=== PATIENT | male | born 1980 | race Caucasian/White ===

== ENCOUNTER → 2020-06-30 17:33 | Outpatient (CLI) | payer BC, SELFPAY ==
[2020-06-30 18:35] LABS: Basophils # 0.1 K/mm3 (0-0.2); Basophils % 0.6 % (0.1-2.0); Eosinophils # 0.3 K/mm3 (0.0-0.4); Eosinophils % 2.6 % (0.1-12.0); Hematocrit 45.8 % (42.0-52.0); Lymphocytes # 3.1 K/mm3 (0.7-4.5); Lymphocytes % 31.5 % (10-50); Mean Corpuscular HGB Conc 32.7 g/dL (31.8-35.4); Mean Corpuscular Hemoglobin 30.7 pg (27.0-31.2); Mean Platelet Volume 9.7 fl (7.4-10.4); Monocytes # 0.8 K/mm3 (0.1-1.0); Monocytes % 8.3 % (1.7-9.3); Neutrophils # 5.5 K/mm3 (1.8-7.8); Neutrophils % 56.9 % (37.0-80.0); Platelet Count 285 K/mm3 (142-424); Red Blood Count 4.88 M/mm3 (4.60-6.20); Red Cell Distribution Width 12.7 % (11.5-17.5); White Blood Count 9.7 K/mm3 (4.8-10.8)
[2020-06-30 18:39] LABS: Alanine Aminotransferase 20 U/L (12-78); Albumin Level 4.6 g/dl (3.5-5.0); Albumin/Globulin Ratio 1.5 (1.1-1.8); Alkaline Phosphatase 83 U/L (38-126); Anion Gap 14.5 mEq/L (5-15); Aspartate Amino Transferase 27 U/L (17-59); Bilirubin,Total 0.5 mg/dl (0.2-1.3); Blood Urea Nitrogen 11 mg/dl (9-20); Calcium 10.3 mg/dl (8.4-10.2); Carbon Dioxide 26 mmol/L (22.0-30.0); Chloride 105 mmol/L (98-107); Cholesterol 156 mg/dl (140-200); Estimated Glomerular Filt Rate 93 ml/min (>60); GFR (African American) 113 ML/MIN (>60); Globulin 3.1 g/dL (1.3-3.2); Glucose 104 mg/dl (74-100); HDL Cholesterol 39 mg/dl (40-60); Potassium 4.5 mmoL/L (3.5-5.1); Sodium 141 mmol/L (136-145); Total Protein,Serum 7.7 g/dl (6.3-8.2); Triglycerides 124 mg/dl (30-150); VLDL Cholesterol 25 mg/dL (0-40)
[2020-06-30 18:58] LABS: T4 (Thyroxine) 9.2 ug/dl (5.53-11.0)
[2020-06-30 19:11] LABS: Thyroid Stimulating Hormone 0.54 uIU/mL (0.465-4.68)
== END ==
PROVIDERS: Visit Provider Nurse Practitioner Family
DX: R53.83 Other fatigue (principal)
CPT/HCPCS: 80053; 80061; 84436; 84443; 85025

== ENCOUNTER → 2022-02-14 11:42 | Outpatient (CLI) | payer BC, SELFPAY ==
--- NOTE | 2022-02-14 11:46 | XR_ITS ---
FINAL REPORT CLINICAL HISTORY: pain low back, hx of fx years ago around t12 FINDINGS: THORACIC SPINE Three views were obtained. There is no acute fracture. There is a moderate chronic T12 compression fracture. There is mild leftward curvature. The disc spaces are preserved. There is no soft tissue abnormality. IMPRESSION: No acute bony abnormality. Reviewed, Interpreted and Dictated by Sukhwinder Lucas III, MD Transcribed by Shital Cho Authenticated and [facility]
--- NOTE | 2022-02-14 11:46 | XR_ITS ---
FINAL REPORT CLINICAL HISTORY: pain, low back, hx of fx years ago around t12 FINDINGS: LUMBAR SPINE Three views were obtained. There is no acute fracture. There is a moderate chronic T12 compression fracture. There is no malalignment. The disc spaces are preserved. There is no soft tissue abnormality. IMPRESSION: No acute bony abnormality. Reviewed, Interpreted and Dictated by Sukhwinder Lucas III, MD Transcribed by Shital Cho Authenticated and . [facility]
== END ==
PROVIDERS: PCP Family Medicine; Visit Provider Family Medicine
DX: M54.6 Pain in thoracic spine (principal); M54.9 Dorsalgia, unspecified; M54.50 Low back pain, unspecified; G89.29 Other chronic pain
CPT/HCPCS: 72070; 72100

== ENCOUNTER → 2022-03-01 09:54 | Outpatient (POV) | payer BC, SELFPAY ==
[2022-03-01 10:38] VITALS: BP 123/99; PULSE 88; RESP 18; TEMP 37.1; O2SAT 99; BMI 23.2
--- NOTE | 2022-03-01 10:59 | EXP.PAIN.OV ---
HPI Data of Consult Patient: new to practice Consult date: 03/01/22 Requesting Physician: Hillary Mccormack APRN Primary Care Provider: Chirag Pereyra MD Consult Narrative Reason for consult: Mid/low back pain, bilateral leg pain History of present illness: Mr. Lord is a 41 year old male who presents today as a new patient. He is a referral from Dr. Stanton Pereyra's office. Today the patient rates his pain a 8 out of 10. He states the pain is primarily in his mid/low back that radiates into his bilateral lower extremities however the right side primarily. Patient states that back in 2006 he had a back fracture and has had chronic back pain and related symptoms due to this injury. Patient states that they did want to do surgery at that time however he was against it. Patient has seen physical therapy and a chiropractor in the past however stated it did not provide significant improvement of his symptoms. His last visits with either of these were back in 2018/2018. He also received injections in [place] that provided significant improvement of his symptoms lasting for roughly 2 months. Patient states he does use ibuprofen [id number] however he frequently states he has to take a large dose in order to get any relief. He does use topical such as icy hot with minimal improvement of his symptoms. He is also tried heat and ice however this has not helped. Patient states this is a aching, throbbing sensation that is worse with increased activity and also has burning sensations into his lower extremities. Patient states nothing seems to help his pain. Patient has recently been given [place] [address] Pereyra's office however he states he saw no improvement of his symptoms with this medication. His Jaems is [id number] with a morphine equivalent of 5. It has been reviewed and appropriate. CC: Hillary Mccormack APRN [facility], [facility] Medical History (Updated 03/01/22 @ 11:05 by Hillary Mccormack APRN) Chronic pain Social History (Updated 02/08/22 @ 10:16 by Chau Burnette LPN) Smoking Status: Former smoker pack-years: 23 how long ago did patient quit smokin stopped smoking -pt is currently dipping tobacco. second hand exposure: No alcohol intake: never substance use type: denies use current occupational status: employed Travel in the last 8 weeks: None household members: family housing: house Review of Systems Review of Systems Review of systems:: pertinent systems reviewed and negative unless documented below Review of systems (narrative): Review of Systems: General: No recent weight changes, no fever, no sleep disturbances Respiratory: No cough, no shortness of air, no recurring pulmonary infections Cardiovascular/peripheral vascular: No chest pain, no palpitations, no edema, no shortness of breath Gastrointestinal: No new onset incontinence, normal bowel movements reported Genitourinary: No new onset incontinence Musculoskeletal: Mid/low back pain, bilateral leg pain Psychiatric: [Normal mood/affect] Neurological: [Denies weakness in extremities], [denies balance issues] Meds Home Medications and Allergies Home Medications Medication Instructions Recorded Confirmed Type hydrocodone 5 mg-acetaminophen 325 1 tab PO DAILY PRN pain #20 tabs 02/08/22 03/01/22 Rx mg tablet methylprednisolone 4 mg tablets in See Rx Instructions PO PER PKG DIR 03/01/22 03/01/22 History a dose pack (Medrol ([place])) Pain New Prescriptions to Start Prescriptions: Allergies Allergy/AdvReac Type Severity Reaction Status Date / Time No Known Allergies Allergy Verified 02/08/22 10:11 Objective Vital signs: Temp Pulse Resp BP Pulse Ox 98.7 F 88 18 123/99 H 99 03/01/22 10:38 03/01/22 10:38 03/01/22 10:38 03/01/22 10:38 03/01/22 10:38 Narrative: Physical Exam: General: Alert and oriented x3, no acute distress, pleasant and cooperative Lungs: Respirations even and unlabored, symmetr
== END ==
PROVIDERS: PCP Family Medicine; Visit Provider Nurse Practitioner Family
DX: M54.16 Radiculopathy, lumbar region (principal); M54.6 Pain in thoracic spine
CPT/HCPCS: 99202; G0463

== ENCOUNTER → 2022-04-27 15:24 | Outpatient (CLI) | payer BC, SELFPAY ==
[2022-04-27 17:41] LABS: Alanine Aminotransferase 26 U/L (12-78); Albumin Level 4.4 g/dl (3.5-5.0); Albumin/Globulin Ratio 1.7 (1.1-1.8); Alkaline Phosphatase 101 U/L (38-126); Anion Gap 16.2 mEq/L (5-15); Aspartate Amino Transferase 27 U/L (17-59); Bilirubin,Total 0.5 mg/dl (0.2-1.3); Blood Urea Nitrogen 16 mg/dl (9-20); Calcium 9.9 mg/dl (8.4-10.2); Carbon Dioxide 26 mmol/L (22.0-30.0); Chloride 105 mmol/L (98-107); Chol/HDL Ratio 4.8 (1-3.5); Cholesterol 159 mg/dl (140-200); Estimated Glomerular Filt Rate 93 ml/min (>60); GFR (African American) 112 ML/MIN (>60); Globulin 2.6 g/dL (1.3-3.2); Glucose 88 mg/dl (74-100); HDL Cholesterol 33 mg/dl (40-60); Potassium 4.2 mmoL/L (3.5-5.1); Sodium 143 mmol/L (136-145); Triglycerides 86 mg/dl (30-150); VLDL Cholesterol 17 mg/dL (0-40)
[2022-04-27 17:43] LABS: Basophils % 0.5 % (0.1-2.0); Eosinophils # 0.4 K/mm3 (0.0-0.4); Hematocrit 45.5 % (42.0-52.0); Hemoglobin 14.7 g/dL (14.1-18.0); Lymphocytes # 2.5 K/mm3 (0.7-4.5); Mean Corpuscular HGB Conc 32.4 g/dL (31.8-35.4); Mean Corpuscular Hemoglobin 30.1 pg (27.0-31.2); Mean Platelet Volume 10.1 fl (7.4-10.4); Monocytes # 0.6 K/mm3 (0.1-1.0); Neutrophils # 4.2 K/mm3 (1.8-7.8); Neutrophils % 54.5 % (37.0-80.0); Platelet Count 374 K/mm3 (142-424); Red Blood Count 4.89 M/mm3 (4.60-6.20); Red Cell Distribution Width 12.9 % (11.5-17.5); White Blood Count 7.7 K/mm3 (4.8-10.8)
[2022-04-27 17:53] LABS: Direct LDL Cholesterol 102.45 mg/dL (100-129)
[2022-04-27 18:10] LABS: Thyroid Stimulating Hormone 0.17 uIU/mL (0.465-4.68)
[2022-05-03 22:23] LABS: Testosterone, Total, LC/MS 469.1 ng/dL (264.0-916.0); Testosterone,Free 4.3 pg/mL (6.8-21.5)
== END ==
PROVIDERS: PCP Nurse Practitioner Family; Visit Provider Nurse Practitioner Family
DX: I10 Essential (primary) hypertension (principal); R53.83 Other fatigue; N52.9 Male erectile dysfunction, unspecified; E29.1 Testicular hypofunction
CPT/HCPCS: 80053; 80061; 84402; 84403; 84443; 85025

== ENCOUNTER → 2022-07-27 09:25 | Outpatient (POV) | payer BC, SELFPAY ==
[2022-07-27 09:54] VITALS: BP 141/83; PULSE 74; RESP 18; O2SAT 99; BMI 23.3
--- NOTE | 2022-07-27 10:29 | EXP.PAIN.OV ---
HPI Data of Consult Patient: new to practice Consult date: 07/27/22 Requesting Physician: Jj Maurer CRNA Primary Care Provider: Chirag Pereyra MD Consult Narrative Reason for consult: Cervical, thoracic, lumbar back pain. Lumbar radiculopathy. History of present illness: Mr. Lord is a 42 year old male who comes our clinic today for chronic cervical, thoracic and lumbar back pain. We discussed in detail regarding narrowing down to 1 complaint that is giving the most grief. He reports lumbar back pain. Patient has been ordered by his PCP for cervical MRI today. According to his medical records on the computer he was ordered lumbar and thoracic MRI March 2022. However, patient was a no-show for the imaging appointment. He describes his cervical neck pain as constant, dull, aching reports some radicular symptoms into the left shoulder and hand. Otherwise his thoracic back pain and lumbar back pain are his main complaints. He describes bilateral hip and leg radicular symptoms. He rates his pain 7/10. Patient suffered a fall in 2006 from 25 feet while trimming a tree. He landed in the sitting position. Had extreme pain for several weeks. Patient had T12 compression fracture due to the fall and was advised for kyphoplasty. However, the patient refused. Patient was given hydrocodone recently by his PCP 5 mg #30. Patient states this medication did help with his overall symptoms. CC: Jj Maurer CRNA [facility] Disclaimer: The information contained in this section may have been updated after the patient was seen, as this information can be updated by other users. Medical History (Updated 07/27/22 @ 10:36 by Jj Maurer CRNA) Chronic pain Social History (Updated 07/27/22 @ 10:01 by Anna Guevara RN) Smoking Status: Former smoker pack-years: 23 how long ago did patient quit smokin stopped smoking -pt is currently dipping tobacco. second hand exposure: No alcohol intake: never substance use type: denies use current occupational status: employed Travel in the last 8 weeks: None household members: family housing: house Review of Systems Review of Systems Review of systems (narrative): Patient is awake alert [place] x3. In no acute distress. Flexion-extension cervical lumbar spine somewhat guarded secondary to pain. Deep tendon reflexes upper lower extremities normal. Motor strength upper and lower extremities normal. There is no gross sensory deficit. Gait is normal. Meds Home Medications and Allergies Home Medications Medication Instructions Recorded Confirmed Type sildenafil 100 mg tablet 100 mg PO DIRECTED Edema 07/27/22 07/27/22 History New Prescriptions to Start Prescriptions: Allergies Allergy/AdvReac Type Severity Reaction Status Date / Time No Known Allergies Allergy Verified 07/12/22 13:11 Objective Vital signs: Pulse Resp BP Pulse Ox 74 18 141/83 H 99 07/27/22 09:54 07/27/22 09:54 07/27/22 09:54 07/27/22 09:54 Opioid Risk Tool Opioid Risk Tool-Male Family hx alcohol abuse: Yes Family hx illegal drugs: No Family hx rx drug abuse: No Personal hx alcohol abuse: No Personal hx illegal drugs: No Personal hx rx drug abuse: No Age: 16-45 years Hx of sexual abuse: No Mental health issues-ADD,OCD,Bipolar, etc: No Hx of depression: No Male Risk Score: 4 Assessment and Plan *Assessment and plan (1) Cervical pain (neck): Status: Acute Category: Medical Code(s): M54.2 - Cervicalgia (2) Lumbar back pain with radiculopathy affecting lower extremity: Status: Acute Category: Medical Code(s): M54.16 - Radiculopathy, lumbar region Plan Patient will proceed with cervical MRI today. I will set the patient up for lumbar evaluate and treat physical therapy. We will order lumbar MRI. He will return to clinic in 4 weeks to discuss progress with physical therapy and MRI results.
== END ==
PROVIDERS: PCP Family Medicine; Visit Provider Nurse Anesthetist, Certified Registered
DX: M54.16 Radiculopathy, lumbar region (principal); M54.2 Cervicalgia
CPT/HCPCS: 99202; G0463

== ENCOUNTER → 2022-07-27 13:46 | Outpatient (CLI) | payer BC, SELFPAY ==
--- NOTE | 2022-07-27 13:46 | MR_ITS ---
FINAL REPORT TECHNIQUE: Multiplanar and multisequence imaging of the cervical spine was obtained. CLINICAL HISTORY: LUE Weakness, Fall FINDINGS: Alignment is normal. Vertebral body height is preserved. Signal intensity within the substance of the spinal cord is normal. Bone marrow signal intensity is normal. Paraspinal soft tissues are within normal limits. C2/3: There is mild left facet osteoarthropathy causing mild left neural foramina l narrowing. C3/4: There is no focal disc herniation, central stenosis or neural foraminal narrowing. C4/5: There is no focal disc herniation, central stenosis or neural foraminal narrowing. C5/6: An annular disc bulge is present with mild facet osteoarthropathy and mild left neural foraminal narrowing. C6/7: An annular disc bulge is present with degenerative endplate changes and facet osteoarthropathy. There is moderate, left greater than right, neural foraminal narrowing. C7/T1: There is no focal disc herniation, central stenosis or neural foraminal narrowing. IMPRESSION: Degenerative disc disease, most pronounced at C6-7. No acute osseous abnormality. Reviewed, Interpreted and Dictated by Loreta Shepherd MD Transcribed by Shital Cho Authenticated and [facility]
== END ==
PROVIDERS: PCP Family Medicine; Visit Provider Family Medicine
DX: R29.898 Other symptoms and signs involving the musculoskeletal system (principal); W19.XXXA Unspecified fall, initial encounter
CPT/HCPCS: 72141; 76376

== ENCOUNTER → 2022-08-22 10:27 | Outpatient (POV) | payer BC, SELFPAY ==
[2022-08-22 10:30] VITALS: BP 143/91; PULSE 83; RESP 20; BMI 23.3
--- NOTE | 2022-08-22 12:04 | EXP.PAIN.SOA ---
[facility] Pain Management SOAP Note Subjective:: Patient is a pleasant 42-year-old male who presents today for follow-up. We are currently treating the patient for low back pain with lumbar radiculopathy symptoms, neck pain, mid back pain cervicalgia. Today he rates his pain a 7 out of 10. Patient denies any new trauma or injury. Patient denies any change location or type of pain he experiences. Patient states that he has both neck and back pain however his lower back is the more predominant source of his pain. He does state this is related to a 2007 injury where he had a back fracture. He states this is becoming a chronic pain and that it does radiate down both of his legs. He does describe it as an aching, throbbing sensation that is worse with increased activity. Patient states that they did want to do surgical intervention at that time however he did not. He had injections in the past in [place] that provided significant improvement of his symptoms lasting for roughly 2 months.? Patient has been going to physical therapy for over 4 weeks now with minimal improvement. He does use ibuprofen as needed along with his [place] 5 mg that he has been prescribed in the past from Dr. Pereyra. Patient states he has also tried zemx-wce-wsfomvz topicals and heat and ice with no additional relief. He does state this pain affects his ability to perform activities of daily living such as cooking and cleaning or working at his full-time job. He does state that he has a demanding job where he frequently lifts upwards of 50 pounds which does irritate his back symptoms. He does state that we recently ordered an MRI however this was denied due to lack of physical therapy but that Dr. Pereyra did recently get the results of his cervical MRI. He does state that he has radiating symptoms into his arms with numbness and tingling. His James is [id number]. Its been reviewed and appropriate. Review of Systems: General: No recent weight changes, no fever, no sleep disturbances Respiratory: No cough, no shortness of air, no recurring pulmonary infections Cardiovascular/peripheral vascular: No chest pain, no palpitations, no edema, no shortness of breath Gastrointestinal: No new onset incontinence, normal bowel movements reported Genitourinary: No new onset incontinence Musculoskeletal: Neck pain, back pain, leg pain Psychiatric: [Normal mood/affect] Neurological: [Denies weakness in extremities], [denies balance issues] Objective:: Physical Exam: General: Alert and oriented x3, no acute distress, pleasant and cooperative Lungs: Respirations even and unlabored, symmetrical chest expansion Eyes: PERRL Musculoskeletal: Flexion and extension of cervical, lumbar [spine] somewhat guarded secondary to pain, [antalgic gait noted] Neurological: Speech clear, no gross sensory deficit FINAL REPORT TECHNIQUE: Multiplanar and multisequence imaging of the cervical spine was obtained. CLINICAL HISTORY: LUE Weakness, Fall FINDINGS: Alignment is normal.? Vertebral body height is preserved. Signal intensity within the substance of the spinal cord is normal.? Bone marrow signal intensity is normal.? Paraspinal soft tissues are within normal limits.? C2/3:? There is mild left facet osteoarthropathy causing mild left neural foramina l narrowing.? C3/4:? There is no focal disc herniation, central stenosis or neural foraminal narrowing.? C4/5:? There is no focal disc herniation, central stenosis or neural foraminal narrowing.? C5/6:? An annular disc bulge is present with mild facet osteoarthropathy and mild left neural foraminal narrowing. C6/7:? An annular disc bulge is present with degenerative endplate changes and facet osteoarthropathy.? There is moderate, left greater than right, neural foraminal narrowing.? C7/T1: There is no focal disc herniation, central stenosis or neural foraminal narrowing. IMPRESSION: Degenerative disc disease, most pronounced at C6-7.? ? No acute osseous abnormali
== END ==
PROVIDERS: PCP Family Medicine; Visit Provider Nurse Practitioner Family
DX: M50.123 Cervical disc disorder at C6-C7 level with radiculopathy (principal); M54.16 Radiculopathy, lumbar region; M54.50 Low back pain, unspecified
CPT/HCPCS: 99212; G0463

== ENCOUNTER 2022-08-28 14:19 | Day surgery (SDC) | payer BC, SELFPAY ==
[2022-08-28 14:21] VITALS: BP 148/76; PULSE 75; RESP 18; TEMP 36.6; O2SAT 100; BMI 23.3
[2022-08-28 14:26] VITALS: BP 167/88; PULSE 85; RESP 18; O2SAT 98
[2022-08-28 14:34] VITALS: BP 167/88; PULSE 85; RESP 18; O2SAT 98
--- NOTE | 2022-08-28 14:37 | EXP.PAIN.PRO ---
Procedure Date: 08/28/22 Time: 14:30 Anesthesiologist:: Jj Maurer CRNA Complications:: None Pre-procedure Diagnosis:: Degenerative disc disease lumbar spine multilevels. Lumbar radiculopathy. Post-procedure Diagnosis:: Same. Indications for Procedure:: This patient is a very pleasant 42-year-old male that comes our clinic today for lumbar epidural steroid injection at the L4-5 level. Patient complains of low back pain as well as bilateral hip and leg radicular symptoms. He rates his pain 7/10. Procedure Details:: Procedure: Lumbar epidural steroid injection under fluoroscopy Informed consent was obtained and the risks and benefits of the procedure were explained to the patient. The patient was taken to the procedure room and noninvasive monitors placed, including noninvasive blood pressure cuff and pulse oximeter. The back was viewed using C-arm Fluoroscopy and prepped using Chloraprep as a cleansing solution and the L4-L5 interspace was palpated. Skin and subcutaneous tissues were anesthetized using lidocaine 1.5% and a 25-gauge needle. After this, an 18-gauge Touhy epidural needle was placed into the L4-L5 interspace and advanced using fluoroscopic guidance and loss of resistance to air until the epidural space was encountered. After confirmation of needle placement in the epidural space, with dye, a solution containing normal saline, 3 mL and Depo-Medrol 80 mg were incrementally injected into the lumbar epidural space. The patient tolerated the procedure well with no complications. The patient was observed in the Pain Clinic and then discharged home neurologically intact. Plan and Disposition:: Patient was discharged without incident.
[2022-08-28 14:38] VITALS: BP 145/82; PULSE 66; RESP 18; TEMP 36.6; O2SAT 100
== END 2022-08-28 14:38 | disposition home or self-care (01) ==
PROVIDERS: PCP Family Medicine; Visit Provider Nurse Anesthetist, Certified Registered
DX: M51.16 Intervertebral disc disorders with radiculopathy, lumbar region (principal)
CPT/HCPCS: 62323; J1040

== ENCOUNTER → 2022-08-30 09:03 | Outpatient (POV) | payer BC, SELFPAY ==
[2022-08-30 09:18] VITALS: BP 146/89; PULSE 79; RESP 20; BMI 23.3
--- NOTE | 2022-08-30 09:43 | EXP.PAIN.SOA ---
[facility] Pain Management SOAP Note Subjective:: Patient is a pleasant 42-year-old male who presents today for follow-up lumbar epidural steroid injection at L4-L5 on 08/28/2022.? We are currently treating the patient for low back pain with lumbar radiculopathy symptoms, neck pain, mid back pain cervicalgia.? Today he rates his pain a 8 out of 10.? He does state that he had worsening pain following his injection that is going on for the last 2 days. He describes continued numbness in his left leg. Patient has used xjtg-uuq-eizlevp ibuprofen along with ice and a TENS unit with minimal relief. Patient denies any new injury or trauma. Patient has stated he continues to have both neck and back pain with radiating symptoms down both of his legs.? This is related to a 2007 injury where he had a back fracture.? Patient has been going to physical therapy for over 4 weeks now with minimal improvement.?Patient states he has also tried gitu-cbc-vxodwoc topicals and heat and ice with no additional relief.? At his last visit we did order an MRI of his lumbar spine however he states that he has not heard yet if this has been approved. His James is [id number].? Its been reviewed and appropriate. Review of Systems: General: No recent weight changes, no fever, no sleep disturbances Respiratory: No cough, no shortness of air, no recurring pulmonary infections Cardiovascular/peripheral vascular: No chest pain, no palpitations, no edema, no shortness of breath Gastrointestinal: No new onset incontinence, normal bowel movements reported Genitourinary: No new onset incontinence Musculoskeletal: Low back pain, leg pain Psychiatric: [Normal mood/affect] Neurological: [Denies weakness in extremities], [denies balance issues] Objective:: Physical Exam: General: Alert and oriented x3, no acute distress, pleasant and cooperative Lungs: Respirations even and unlabored, symmetrical chest expansion Eyes: PERRL Musculoskeletal: Flexion and extension of lumbar [spine] somewhat guarded secondary to pain, [antalgic gait noted] Neurological: Speech clear, no gross sensory deficit Assessment:: Degenerative disc disease of lumbar spine with lumbar radiculopathy symptoms, neck pain, mid back pain, cervicalgia Plan:: Patient is having worsening pain following his lumbar epidural steroid injection. I will prescribe the patient oral prednisone 20 mg twice daily for 5 days and order compounding cream. Patient is still waiting for his approval for the lumbar MRI. We will follow-up with the patient in 2 weeks for reevaluation of symptoms and plan of care. Patient has been instructed to contact the clinic with any concerns before the next appointment. Dr. Solomon has reviewed this note and agrees with this plan of care. This note was dictated using voice recognition software and make contain errors or omissions. [facility] Disclaimer: The information contained in this section may have been updated after the patient was seen, as this information can be updated by other users. Medical History Chronic pain Family History (Updated 08/28/22 @ 14:21 by Jumana Rowe RN) Other No significant family history Social History Smoking Status: Former smoker pack-years: 23 how long ago did patient quit smokin stopped smoking -pt is currently dipping tobacco. second hand exposure: No alcohol intake: never substance use type: denies use current occupational status: other Travel in the last 8 weeks: None household members: family housing: house
== END | disposition home or self-care (01) ==
PROVIDERS: PCP Family Medicine; Visit Provider Nurse Practitioner Family
DX: M51.16 Intervertebral disc disorders with radiculopathy, lumbar region (principal); F17.200 Nicotine dependence, unspecified, uncomplicated
CPT/HCPCS: 99212; G0463

== ENCOUNTER → 2022-09-10 13:50 | Outpatient (CLI) | payer BC, SELFPAY ==
--- NOTE | 2022-09-10 13:53 | MR_ITS ---
FINAL REPORT CLINICAL HISTORY: BACK PAIN.HX BACK FRACTURES. LEFT LEG PAIN, NUMBNESS, AND TINGLING. NO RECENT INJURY OR TRAUMA FINDINGS: Multiplanar MR imaging of the lumbar spine was performed without contrast. On the sagittal T2-weighted images, there is mild decreased signal throughout the lumbar discs. There is 40% compression of T12 without marrow edema or retropulsion of bone. The vertebral alignment is normal. L1-2: There is no significant canal stenosis or neural foraminal narrowing. L2-3: There is no significant canal stenosis or neural foraminal narrowing. L3-4: There is a mild diffuse disc bulge with mild bilateral neural foraminal narrowing. L4-5: There is no significant canal stenosis or neural foraminal narrowing. L5-S1: There is no significant canal stenosis or neural foraminal narrowing. IMPRESSION: 40% compression fracture of T12, chronic. Diffuse disc bulge with mild bilateral neural foraminal narrowing at L3-L4. Reviewed, Interpreted and Dictated by Yoshi Rainey MD Transcribed by Teodoro Dia Authenticated and [facility]
== END ==
PROVIDERS: PCP Family Medicine; Visit Provider Nurse Practitioner Family
DX: M54.50 Low back pain, unspecified (principal)
CPT/HCPCS: 72148; 76376

== ENCOUNTER 2022-09-20 09:30 | Outpatient (RCR) | payer BC, OTHER, SELFPAY ==
--- NOTE | 2022-07-31 12:05 | HMH.PTOPEV ---
PT Outpatient Evaluation Rehab PT Outpatient Evaluation Start: 07/31/22 10:41 Freq: Status: Active Protocol: Document 07/31/22 10:57 STONE (Rec: 07/31/22 12:05 STONE [id number]) E-signed By Easton Temple, PT Outpatient Therapy Subjective History Subjective History Pt reports h/o chronic mid and LBP since sustaining a T12 compression fx caused by fall from tree in 2006. Pt reports work related activity (bend and lifting) has caused most recent exacerbation w/midline mid and low back pain as well as radicular s/s from hips to feet. Pt reports awaiting MRI of lumbar region. Chief Complaint Pain,Stiff,Paresthesia, Weakness Symptom Type Ache,Sharp,Dull,Numbness, Tingling Symptoms Relieved By Rest/Positioning,Heat,OTC Meds Symptoms Aggravated By Bending/Stooping,Physical Activity,Lifting Prior Functional Limitations Lifting,Housework,Bending/ Stooping Current Functional Limitations Lifting,Housework,Bending/ Stooping Symptom Description Constant but Variable Level of pain today (0-10) 6 Pain scale - at its best (0-10) 6 Pain scale - at its worst (0-10) 9 Lumbopelvic Eval Posture Thoracic Spine Posture Standing Position Neutral Lumbar Spine Posture Standing Position Neutral Gait Observation General Gait Pattern Observation No Deviations/Normal Palapation tenderness bilateral thoracic spinal tenderness Yes: 3/4 lumbar spinal tenderness Yes: 3/4 paraspinal tenderness Yes: 3/4 buttock tenderness Yes: 2-3/4 Lumbar/Sacral Palpation Findings Tenderness,Trigger Point, Muscle Guarding Accessory Movement T-spine Vertebrae Accessory Movements Central P/A [place] that Elicit Symptoms T10 bilateral T11 bilateral T12 bilateral L-spine Vertebrae Accessory Movements Central P/A [place] that Elicit Symptoms L2 bilateral L3 bilateral L4 bilateral L5 bilateral S1 bilateral Range of Motion Lumbar Spine Active Flexion Range of 0-25 Motion (degrees) Lumbar Spine Active Extension Range of 0-10 Motion (degrees) Left Lumbar Spine Lateral Flexi
--- NOTE | 2022-09-18 09:50 | HMH.RHREAS ---
Rehab Reassessment Rehab OP Re-assessment Start: 09/18/22 09:43 Freq: Status: Active Protocol: Document 09/18/22 09:43 STONE (Rec: 09/18/22 09:49 STONE [id number]) E-signed By Easton Temple, PT Rehab Re-assessment Subjective Subjective Pt reports increased left LE radicular s/s since 'pain management injection a couple weeks ago', reports 7/10 LBP this am, radicular s/s in LLE to toes, and right LE to knee level. Pt reprorts neurosx. consult on 09/28. Objective Objective Notes AROM: LUMBAR SPINE FLX 0-15, EXT 0-10, RIGHT SB 0-10, LEFT SB 0-15 MMT: RIGHT HIP FLX 4-/5, LEFT HIP FLX 3+/5, RIGHT KNEE EXT 4 /5, LEFT KNEE EXT 3+/5, RIGHT KNEE FLX 3+/5, RIGHT KNEE FLX 3-/5, RIGHT DF 4/5, LEFT DF 3- /5 TTP: MIDLINE LUMBAR SPINE 3-4/ 4, PAM. LUMBAR PARASPINALS 3-4 /4 Assessment Progress Assessment No Progress Assessment Notes INCREASED PAIN, WEAKNESS, AND TTP Patient goals met STG'S 06/17 Goals Not Met STG'S 12/15, LTG'S 02/16 Plan Plan Pt to continue w/skilled P.T. to make improvements in strength, TTP, and AROM following a couple week hold dictated by Pain Management to allow for optimal function Frequency of Therapy 1-2x/wk Duration of therapy 3-5wks Time and Billing Re-Eval Time 12 Re-Eval Billing Units 1 PHYSICIAN CERTIFICATION: I certify the specified therapy services for Shukri Lord are required, authorized, and reviewed every 30 days.
== END 2022-09-20 09:35 | disposition home or self-care (01) ==
LOC: PT 09:30
PROVIDERS: PCP Family Medicine; Visit Provider Nurse Practitioner Family
DX: M54.50 Low back pain, unspecified (principal)
CPT/HCPCS: 97010; 97012; 97014; 97110; 97140; 97163; 97164; G0283

== ENCOUNTER 2022-09-28 23:23 | Emergency (ER) | payer BC, SELFPAY ==
[2022-09-28 23:26] VITALS: BP 163/95; PULSE 77; RESP 16; TEMP 36.8; O2SAT 98; BMI 25.0
[2022-09-28 23:32] VITALS: BP 163/95; PULSE 77; O2SAT 98
[2022-09-28 23:33] VITALS: BMI 24.3
--- NOTE | 2022-09-28 23:46 | CT_ITS ---
PROCEDURE INFORMATION: Exam: CT Head Without Contrast Exam date and time: 09/28/2022 11:55 PM Age: 42 years old Clinical indication: Stroke-like symptoms; Headache and speech disturbance; Generalized weakness; Additional info: Stroke like symptoms TECHNIQUE: Imaging protocol: Computed tomography of the head without contrast. Radiation optimization: All CT scans at this facility use at least one of these dose optimization techniques: automated exposure control; mA and/or kV adjustment per patient size (includes targeted exams where dose is matched to clinical indication); or iterative reconstruction. Other technique: STROKE PROTOCOL was implemented. REPORTING DATA: Count of CT and Cardiac NM exams in prior 12 months: This patient has received 0 known CTs and 0 known cardiac nuclear medicine studies in the 12 months prior to the current study. COMPARISON: MR CERVICAL SPINE WO CON 07/27/2022 2:15 PM FINDINGS: Brain: Hypodensity is identified involving the bilateral inferior frontal lobe with patchy roberts-white differentiation loss. Cerebral edema or acute/subacute infarction is considered, although artifact can contribute to this finding. No definitive acute intracranial hemorrhage is visualized. There is no midline shift. Artifact limits evaluation of the kya, cerebellum, and anterior temporal lobes. Cerebral ventricles: The ventricles are small in size. A cavum septum pellucidum variant is visualized. Paranasal sinuses: Visualized sinuses are unremarkable. No fluid levels. Mastoid air cells: No mastoid effusion. Bones/joints: The calvarium demonstrates no evidence for a depressed fracture. Soft tissues: Unremarkable. IMPRESSION: 1. Hypodensity is identified involving the bilateral inferior frontal lobe with patchy roberts-white differentiation loss. Cerebral edema or acute/subacute infarction is considered, although artifact can contribute to this finding. Correlation with MRI recommended, as clinically indicated. 2. The ventricles are small in size. ASSESSMENT: ASPECTS ([facility] Stroke Program Early CT Score) is 9.
--- NOTE | 2022-09-28 23:46 | PC.NURSE ---
contacted Allie for pt records at this time
[2022-09-28 23:53] LABS: Basophils # 0.1 K/mm3 (0-0.2); Basophils % 0.6 % (0.1-2.0); Eosinophils # 0.5 K/mm3 (0.0-0.4); Eosinophils % 5.9 % (0.1-12.0); Hematocrit 43.4 % (42.0-52.0); Hemoglobin 14.2 g/dL (14.1-18.0); Lymphocytes # 2.9 K/mm3 (0.7-4.5); Lymphocytes % 32.7 % (10-50); Mean Corpuscular HGB Conc 32.7 g/dL (31.8-35.4); Mean Corpuscular Volume 91.8 fl (80-94); Mean Platelet Volume 8.4 fl (7.4-10.4); Monocytes # 0.6 K/mm3 (0.1-1.0); Monocytes % 7.2 % (1.7-9.3); Neutrophils # 4.8 K/mm3 (1.8-7.8); Neutrophils % 53.6 % (37.0-80.0); Platelet Count 311 K/mm3 (142-424); Red Blood Count 4.73 M/mm3 (4.60-6.20); Red Cell Distribution Width 12.7 % (11.5-17.5); White Blood Count 8.9 K/mm3 (4.8-10.8)
[2022-09-28 23:57] LABS: Alanine Aminotransferase 25 U/L (12-78); Albumin Level 4.1 g/dl (3.5-5.0); Albumin/Globulin Ratio 1.4 (1.1-1.8); Alkaline Phosphatase 88 U/L (38-126); Anion Gap 10.4 mEq/L (5-15); Aspartate Amino Transferase 27 U/L (17-59); Bilirubin,Total 0.6 mg/dl (0.2-1.3); Blood Urea Nitrogen 6 mg/dl (9-20); Calcium 8.7 mg/dl (8.4-10.2); Carbon Dioxide 28 mmol/L (22.0-30.0); Chloride 105 mmol/L (98-107); Creatinine Clearance Estimated 123 mL/min (50-200); Estimated Glomerular Filt Rate 106 ml/min (>60); GFR (African American) 128 ML/MIN (>60); Globulin 2.9 g/dL (1.3-3.2); Glucose 116 mg/dl (74-100); Potassium 3.4 mmoL/L (3.5-5.1); Sodium 140 mmol/L (136-145)
[2022-09-29] VITALS: BP 155/96; PULSE 73; O2SAT 99
[2022-09-29 00:03] LABS: C-Reactive Protein 0.5 mg/L (0-4)
--- NOTE | 2022-09-29 00:05 | ECG_ITS ---
APPROVED REPORT Exam: Resting ECG HR:66 bpm ECG Measurements Heart Rate 66 AXES HI 173 P 57 QRSd 89 QRS 68 QT 370 T 59 QTc 384 Conclusion SINUS RHYTHM NORMAL ECG UNCONFIRMED REPORT Electronically signed by : Stanton Her MD 09/29/2022 15:39:10
[2022-09-29 00:14] LABS: POC Glucose,Bedside 108 (70-110)
[2022-09-29 00:16] LABS: Procalcitonin 0.032 ng/mL (0.0-2.0)
[2022-09-29 00:30] VITALS: BP 146/83; PULSE 79; O2SAT 99
[2022-09-29 00:42] LABS: Erythrocyte Sedimentation Rate 14 mm/hr (0-15)
--- NOTE | 2022-09-29 01:36 | HMH.EDHA ---
Discharge Plan Disposition Patient Disposition: Xfer Short-Term Hosp Chief Complaint: Headache Prescriptions Prescriptions: No Action lisinopril 20 mg tablet 20 mg PO DAILY Qty: 90 3RF oxycodone-acetaminophen [Percocet] 5-325 mg tablet 1 tab PO DAILY PRN (Reason: pain) Qty: 3 0RF sildenafil 100 mg tablet 100 mg PO DIRECTED Label Comments: TAKE 1 TABLET BY MOUTH ONCE DAILY prednisone 20 mg tablet 20 mg PO BID Qty: 10 0RF Referrals Follow up/Referrals: Chirag Pereyra MD [Primary Care Provider] - See instructions Clinical Impressions Clinical Impression: Neurological symptoms, Abnormal CT of brain Discharge ED Provider: Melanie (ED),Hira Hernandes Headache HPI General Chief Complaint: Headache Stated Complaint: PERLA,over heated night 09/27 Time Seen by Provider: 09/29/22 00:50 Mode of Arrival: Ambulatory Source of Information: Patient, Spouse and Medical Record Limitations: No Limitations Description of Symptoms (Recalled from ER Triage Doc. by RN): Pt arrives to ED with c/o a consistent headache all day and stated he developed slurred speech around 2200 tonight. Pt's speech is back to baseline on arrival to ED. History of Present Illness HPI Narrative: pt with episode last pm of slurred speech and abn mov and not as responsive lasted a few min and was seen at [facility] and back to baseline and sent home - no specific dx - pt has been doing ok today- saturday except global type perla which has had prior to events but worse today and has used motrin - of interest seen by neurosurg today for other issues - pt tonight had slurred speech which lasted about 5 min and back to baseline - no incont , no fever/rash/tick bite ot trauma and no drugs Complaint: headache and other (slurred speech) Onset (ago): hour(s) Onset description: gradual Location: diffuse Severity: moderate Quality: different than previous headaches Associated symptoms: none Treatments prior to arrival: ibuprofen Related Data Home Medications Medication Instructions Recorded Confirmed sildenafil 100 mg tablet 100 mg PO DIRECTED . 07/27/22 09/14/22 Previous Rx's Medication Instructions Recorded lisinopril 20 mg tablet 20 mg PO DAILY #90 tabs 08/30/22 prednisone 20 mg tablet 20 mg PO BID #10 tabs 08/30/22 oxycodone-acetaminophen 5 mg-325 1 tab PO DAILY PRN pain #3 tabs 09/17/22 mg tablet (Percocet) Allergies Allergy/AdvReac Type Severity Reaction Status Date / Time No Known Allergies Allergy Verified 09/14/22 11:12 [facility] History Hepatitis A Screen Attestation statement:: This patient has been screened for Hepatitis A risk factors. I have reviewed the patient's past medical history: Yes Medical History: Denies: Seizures Other Medical History: Denies Blood Transfusion Reaction Other Surgeries: Yes No Previous Surgery and Other Amputation: No Fractures: Yes (fx back) Social History Smoking Status: Never smoker Tobacco Type: cigarettes # Packs/Day (cigarettes): 1 #Yrs smoked (if former smoker): 23 Alcohol Intake: never Substance Use Type: denies use Occupational Status: other Housing: house Household Members: family Family Hx:: Cancer, Coronary Artery Disease, Heart Attack and Hypertension [facility] Disclaimer: The information contained in this section may have been updated after the patient was seen, as this information can be updated by other users. Medical History Chronic pain Family History Other No significant family history Social History Smoking Status: Never smoker how long ago did patient quit smokin stopped smoking -pt is currently dipping tobacco. second hand exposure: No alcohol intake: never substance use type: denies use current occupational status: other Travel in the [facility]
--- NOTE | 2022-09-29 02:12 | PC.NURSE ---
Dr. Navarro speaking with Dr. Quiñonez at [facility]
[2022-09-29 02:17] VITALS: BP 146/92; O2SAT 100
--- NOTE | 2022-09-29 02:18 | PC.NURSE ---
Pt ambulatory to bathroom
--- NOTE | 2022-09-29 02:24 | PC.NURSE ---
Dr. Quiñonez with [facility] advised pt needed MRI but pt was not accepted to [facility] at this time.
--- NOTE | 2022-09-29 02:29 | PC.NURSE ---
Dr. Navarro speaking with Dr. Krause, stroke navigator, at [facility]
[2022-09-29 02:30] VITALS: BP 151/87; PULSE 87; O2SAT 98
--- NOTE | 2022-09-29 02:41 | PC.NURSE ---
[facility]
[2022-09-29 03:00] VITALS: BP 138/79; PULSE 83; O2SAT 97
--- NOTE | 2022-09-29 03:01 | PC.NURSE ---
[facility]
[2022-09-29 03:20] VITALS: BP 138/79; PULSE 76; RESP 18; TEMP 36.6; O2SAT 99
== END 2022-09-29 03:34 | disposition short-term general hospital (02) ==
PROVIDERS: Emergency Provider Emergency Medicine; PCP Family Medicine
DX: R51.9 Headache, unspecified (principal); R47.81 Slurred speech
CPT/HCPCS: 70450; 80053; 82962; 84145; 85025; 85651; 86140; 93005; 96360; 96361; 96374; 99285; J0131

== ENCOUNTER 2023-10-07 22:29 | Emergency (ER) | payer BC, SELFPAY ==
[2023-10-07 22:31] VITALS: BP 173/105; PULSE 110; RESP 16; TEMP 37; O2SAT 100; BMI 23.3
[2023-10-07 22:47] LABS: Basophils # 0.1 K/mm3 (0-0.2); Basophils % 0.6 % (0.1-2.0); Eosinophils # 0.3 K/mm3 (0.0-0.4); Eosinophils % 2.1 % (0.1-12.0); Hematocrit 44.4 % (42.0-52.0); Hemoglobin 15.1 g/dL (14.1-18.0); Lymphocytes # 2.1 K/mm3 (0.7-4.5); Lymphocytes % 15.2 % (10-50); Mean Corpuscular Hemoglobin 31.3 pg (27.0-31.2); Mean Platelet Volume 8.3 fl (7.4-10.4); Monocytes # 0.9 K/mm3 (0.1-1.0); Monocytes % 6.4 % (1.7-9.3); Neutrophils # 10.2 K/mm3 (1.8-7.8); Neutrophils % 75.7 % (37.0-80.0); Platelet Count 324 K/mm3 (142-424); Red Blood Count 4.82 M/mm3 (4.60-6.20); Red Cell Distribution Width 13.7 % (11.5-17.5); White Blood Count 13.4 K/mm3 (4.8-10.8)
[2023-10-07 22:55] LABS: Chloride 106 mmol/L (98-107); Sodium 142 mmol/L (136-145)
[2023-10-07 22:58] LABS: Alanine Aminotransferase 33 U/L (12-78); Albumin Level 4.3 g/dl (3.5-5.0); Albumin/Globulin Ratio 1.5 (1.1-1.8); Alkaline Phosphatase 111 U/L (38-126); Aspartate Amino Transferase 30 U/L (17-59); Bilirubin,Total 0.6 mg/dl (0.2-1.3); Blood Urea Nitrogen 11 mg/dl (9-20); Carbon Dioxide 31 mmol/L (22.0-30.0); Creatinine Clearance Estimated 111 mL/min (50-200); Estimated Glomerular Filt Rate 106 ml/min (>60); GFR (African American) 128 ML/MIN (>60); Globulin 2.8 g/dL (1.3-3.2); Total Protein,Serum 7.1 g/dl (6.3-8.2)
[2023-10-07 22:59] LABS: Calcium 9.4 mg/dl (8.4-10.2); Glucose 102 mg/dl (74-100)
[2023-10-07 22:59] LABS: Lactic Acid 0.9 mmol/L (0.7-2.1)
--- NOTE | 2023-10-07 23:02 | HMH.EDGENADL ---
Discharge Plan Disposition Patient Disposition: Home, Self-Care Prescriptions Prescriptions: New amoxicillin-pot clavulanate 875-125 mg tablet 1 tab PO BID 7 Days Qty: 14 0RF No Action clopidogrel [Plavix] 75 mg tablet 75 mg PO DAILY aspirin 81 mg tablet,chewable 81 mg PO DAILY Referrals Follow up/Referrals: Provider,Referral, [Primary Care Provider] - See instructions Activity Restrictions/Add. Instructions Additional Instructions/Restrictions: Please follow-up with your dentist. Please take antibiotics as prescribed for treatment of dental infection. Please return to the emergency department if you develop any new or worsening symptoms or become concerned for your health. Clinical Impressions Clinical Impression: Dental infection, Jaw swelling Stand Alone Forms Stand Alone Forms: Work/School Release Discharge ED Provider: Gadiel Cowart General Adult HPI General Chief complaint: Dental/Oral Stated complaint: possible acess right lower molar Time Seen by Provider: 10/07/23 22:56 Mode of Arrival: Ambulatory Source of Information: Patient Limitations: No Limitations Description of Symptoms (Recalled from ER Triage Doc. by RN): pt c/o rt lower tooth pain and swelling that started last night. pt has dentist appointment and was started on antibodics today and has taken one dose. History of Present Illness HPI narrative: 43-year-old male presents with right lower jaw swelling and pain. He reports that he has been having pain in the posterior most right mandibular tooth. He did noted swelling this morning, it has gotten worse. He denies any fever or other systemic symptoms. He has a dentist appointment scheduled for Saturday, approximately 36 hours from now, to have it evaluated by dentistry. He denies any other significant past medical history besides stroke. Related Data Home Medications Medication Instructions Recorded Confirmed aspirin 81 mg chewable tablet 81 mg PO DAILY 11/15/22 03/06/23 clopidogrel 75 mg tablet (Plavix) 75 mg PO DAILY 11/15/22 03/06/23 Previous Rx's Medication Instructions Recorded amoxicillin 875 mg-potassium 1 tab PO BID 7 days #14 tabs 10/07/23 clavulanate 125 mg tablet Allergies Allergy/AdvReac Type Severity Reaction Status Date / Time morphine Allergy Other Verified 11/15/22 10:56 [facility] Disclaimer: The information contained in this section may have been updated after the patient was seen, as this information can be updated by other users. Medical History Chronic pain Family History Other No significant family history Social History Smoking Status: Heavy tobacco smoker tobacco type: cigarettes packs per day: 1 how long ago did patient quit smokin stopped smoking -pt is currently dipping tobacco. second hand exposure: No alcohol intake: never substance use type: denies use current occupational status: other Travel in the last 8 weeks: None household members: family housing: house ROS Obtained: Yes All systems reviewed & no additional complaints except as documented Physical Exam General General appearance: alert and in no apparent distress Head Head exam: atraumatic Eye Eye exam: Present normal appearance, PERRL and EOMI ENT ENT exam: Present other (Moderate swelling of the right mandibular jaw. No overlying cellulitis, no focal fluctuant lesion to suggest abscess. Intraorally, there is no lesion, drainage or obvious abscess. Patient has poor dentition) Neck Neck exam: Present normal inspection and full ROM Chest Chest inspection: Present normal inspection and symmetric chest wall rise; Absent tenderness Respiratory Respiratory exam: Present normal lung sounds bilaterally; Absent respiratory distress Cardiovascular Cardiovascular exam: Present regular rate and normal rhythm Abdominal Exam Abdominal exam: Present soft; Absent distention, tenderness or guarding Extremities Exam Extremities exam: Present normal inspection; Absent edema or joint swelling Back Exam Back exam: Present normal inspection; Absent tenderness Neurological Exam Neurological exam: Present alert and oriented X3; Absent motor sensory deficit Psychiatric Psychiatric exam: Present normal affect and normal mood Skin Skin exam: Present warm, dry and normal color Lymphatic Lymphatic Findings: no adenopathy Medical Decision Making Medical Records Medical records reviewed: Yes I reviewed the patient's medical records. James Inquiry Pt receiving controlled substance: No James was queried for this patient: No Vital Signs: 10/07/23 22:31 10/07/23 23:29 Temperature 98.6 F 98.0 F Temperature Source Oral Pulse Rate 76 Pulse Rate [Right] 110 H Respiratory Rate 16 18 Blood Pressure 138/79 Blood Pressure [Right Arm] 173/105 H Blood Pressure Mean [Right Arm] 127 02 Sat by Pulse Oximetry 100 Oxygen Delivery Method Room Air Lab Data Lab results reviewed: Yes I reviewed the patient's lab results. Lab Results 10/07/23 22:39: WBC 13.4 H, RBC 4.82, Hgb 15.1, Hct 44.4, MCV 92.0, MCH 31.3 H, MCHC 34.0, RDW 13.7, Plt Count 324, MPV 8.3, Neut % (Auto) 75.7, Lymph % (Auto) 15.2, Ritchie % (Auto) 6.4, Eos % (Auto) 2.1, Baso % (Auto) 0.6, Neut # (Auto) 10.2 H, Lymph # (Auto) 2.1, Ritchie # (Auto) 0.9, Eos # (Auto) 0.3, Baso # (Auto) 0.1, Sodium 142, Potassium 4.0, Chloride 106, Carbon Dioxide 31 H, Anion Gap 9.0, BUN 11, Creatinine 0.80, Estimated Creat Clear 111, Estimated GFR 106, Est GFR ( Amer) 128, Glucose 102 H, Calcium 9.4, Total Bilirubin 0.6, AST 30, ALT 33, Alkaline Phosphatase 111, Total Protein 7.1, Albumin 4.3, Globulin 2.8, Albumin/Globulin Ratio 1.5 10/07/23 22:43: Lactate 0.9 10/07/23 22:39 10/07/23 22:39 Orders (Tests/Meds): ED MEDICATIONS Discontinued Medications Generic Name Dose Route Start Last Admin Trade Name Freq PRN Reason Stop Dose Admin Ampicillin Sodium/Sulbactam 100 mls @ 200 mls/hr 10/07/23 23:01 10/07/23 23:04 Sodium 3 gm/ Sodium Chloride IV 10/07/23 23:02 200 mls/hr ONCE ONE Administration Lidocaine/Epinephrine 20 ml 10/07/23 23:03 10/07/23 23:05 Lidocaine 1% W/Epi 1:100,000 20ml Vial IJ 10/07/23 23:04 20 ml ONCE ONE Administration ORDERS Category Date Time Status Complete Blood Count Auto Diff Stat Lab 10/07/23 22:39 Completed Comprehensive Metabolic Panel Stat Lab 10/07/23 22:39 Completed Lactic Acid Stat Lab 10/07/23 22:43 Completed Medical Decision Narrative: 43-year-old male presents with right mandibular swelling and pain.. History was obtained interactive discussion with patient. On arrival, patient is [afebrile, hemodynamically stable, satting appropriately, alert, oriented x4, GCS 15], moving all extremities spontaneously. Full physical exam performed and significant for right jaw swelling as documented above. No overlying cellulitis, no fluctuant lesion. Tenderness to palpation of the teeth. Differential includes but is not limited to odontogenic infection, parotitis, osteomyelitis, jugular septic thrombophlebitis. Patient was given an inferior alveolar block for symptomatic management and correction of underlying abnormalities. Workup initiated including CBC CMP lactate. Patient was initiated on IV Unasyn for. Treatment of possible parotitis or odontogenic infection. On re-evaluation, patient [remains afebrile, HD stable.] Laboratory workup independently interpreted by me and significant for mild leukocytosis, normal renal function, normal lactate.. CT of the head neck was considered, but deemed unnecessary due to history and exam. Given patient history, exam and workup, patient's presentation most likely represents odontogenic infection, could also represent parotitis given the location of swelling. Patient was discharged pain-free after dental block with prescription for Augmentin for empiric coverage. He has dentistry follow-up in less than 2 days. Return precautions given. Procedures Risk/Benefits of Procedure(s) Were Explained: Yes Nerve Block Nerve Block 1: Local Anesthetic: lidocaine 1% and with epi Amount of anesthesia used (mL): 5 Side: Right Intraoral Nerve Block: inferior alveolar Procedure Successful: Yes Patient Tolerated Procedure: well and no complications Critical Care Critical Care Time Critical Care Time: No
[2023-10-07] MEDS: AMPICILLIN SODIUM/SULBACTAM 3 GM in 0.9 % SODIUM CHLORIDE 100 ML IV (23:04)
[2023-10-07] MEDS: LIDOCAINE 1% W/EPI 1:100,000 20ML VIAL 20 ML IJ (23:05)
[2023-10-07 23:29] VITALS: BP 138/79; PULSE 76; RESP 18; TEMP 36.7; O2SAT 95
--- NOTE | 2023-10-08 15:12 | PC.NURSE ---
Pt & his called stating his antibiotic wasn't called in . Looking in the chart, it appears [place], [place] was sent the prescription and via e-scribe. I called [facility], and the hospital pharmacy technician explained the pt picked up Augmentin yesterday that another provider sent in same day. I asked Dr. Alvarez if it was necessary to change or the prescription, states no and to completed the 1st prescribed dose of Augmentin. Let the hospital pharmacy technician know this. I also called pt & his back to let them know the issue. stated But I thought he was getting penicillin . I educated pt & her that Augmentin is a penicillin combo medication, stated their understanding.
== END 2023-10-07 23:30 | disposition home or self-care (01) ==
PROVIDERS: Emergency Provider Emergency Medicine
DX: K04.7 Periapical abscess without sinus (principal); R22.0 Localized swelling, mass and lump, head; R68.84 Jaw pain; F17.210 Nicotine dependence, cigarettes, uncomplicated
CPT/HCPCS: 80053; 83605; 85025; 96374; 99284

== ENCOUNTER 2023-10-11 15:50 | Emergency (ER) | payer BC, SELFPAY ==
[2023-10-11 15:51] VITALS: BP 133/96; PULSE 85; RESP 18; TEMP 36.7; O2SAT 100; BMI 22.6
--- NOTE | 2023-10-11 16:15 | ECG_ITS ---
APPROVED REPORT Exam: Resting ECG HR:90 bpm ECG Measurements Heart Rate 90 AXES WI 155 P 77 QRSd 88 QRS 66 QT 327 T 50 QTc 375 Conclusion SINUS RHYTHM Electronically signed by : ROSA POWELL, 10/11/2023 19:42:13
[2023-10-11] MEDS: LIDOCAINE 2% VISCOUS SOL 15ML UDC 15 ML PO (16:24)
[2023-10-11 16:30] VITALS: BP 142/89; PULSE 91; O2SAT 99
[2023-10-11 16:32] LABS: Basophils % 0.7 % (0.1-2.0); Eosinophils # 0.2 K/mm3 (0.0-0.4); Eosinophils % 2.8 % (0.1-12.0); Hematocrit 43.6 % (42.0-52.0); Hemoglobin 14.9 g/dL (14.1-18.0); Lymphocytes # 1.5 K/mm3 (0.7-4.5); Lymphocytes % 25.4 % (10-50); Mean Corpuscular HGB Conc 34.2 g/dL (31.8-35.4); Mean Corpuscular Hemoglobin 31.4 pg (27.0-31.2); Mean Corpuscular Volume 91.7 fl (80-94); Mean Platelet Volume 8.2 fl (7.4-10.4); Monocytes # 0.4 K/mm3 (0.1-1.0); Monocytes % 6.4 % (1.7-9.3); Neutrophils # 3.9 K/mm3 (1.8-7.8); Neutrophils % 64.7 % (37.0-80.0); Platelet Count 339 K/mm3 (142-424); Red Blood Count 4.75 M/mm3 (4.60-6.20); Red Cell Distribution Width 13.5 % (11.5-17.5); White Blood Count 6.1 K/mm3 (4.8-10.8)
[2023-10-11 16:35] LABS: Chloride 105 mmol/L (98-107); Sodium 140 mmol/L (136-145)
[2023-10-11 16:36] LABS: Potassium 4.4 mmoL/L (3.5-5.1)
[2023-10-11 16:38] LABS: Alanine Aminotransferase 29 U/L (12-78); Alkaline Phosphatase 100 U/L (38-126); Anion Gap 10.4 mEq/L (5-15); Aspartate Amino Transferase 29 U/L (17-59); Bilirubin,Total 0.6 mg/dl (0.2-1.3); Blood Urea Nitrogen 14 mg/dl (9-20); Carbon Dioxide 29 mmol/L (22.0-30.0); Creatinine Clearance Estimated 107 mL/min (50-200); Estimated Glomerular Filt Rate 106 ml/min (>60); GFR (African American) 128 ML/MIN (>60)
[2023-10-11 16:39] LABS: Albumin Level 4.1 g/dl (3.5-5.0); Albumin/Globulin Ratio 1.2 (1.1-1.8); Calcium 9.9 mg/dl (8.4-10.2); Globulin 3.3 g/dL (1.3-3.2); Glucose 93 mg/dl (74-100); Total Protein,Serum 7.4 g/dl (6.3-8.2)
[2023-10-11 16:55] LABS: Troponin I < 0.01 ng/ml (0.00-0.034)
--- NOTE | 2023-10-11 17:07 | [facility].EDGENADL ---
Discharge Plan Disposition Patient Disposition: Home, Self-Care Prescriptions Prescriptions: New clopidogrel 75 mg tablet 75 mg PO DAILY Qty: 30 5RF No Action clopidogrel [Plavix] 75 mg tablet 75 mg PO DAILY aspirin 81 mg tablet,chewable 81 mg PO DAILY amoxicillin-pot clavulanate 875-125 mg tablet 1 tab PO BID 7 Days Qty: 14 0RF Referrals Follow up/Referrals: Provider,Referral, MD [Primary Care Provider] - See instructions Activity Restrictions/Add. Instructions Additional Instructions/Restrictions: Call your family doctor to establish care for this visit to the emergency department and schedule follow-up within 48 hours to ensure improvement. If you have any worsening of your condition or any other concerning signs or symptoms, return to the emergency department or your primary care doctor for further evaluation. Plavix sent to pharmacy. Continue taking clindamycin until following up. Clinical Impressions Clinical Impression: Tachycardia, Abscess, periapical Instructions Patient Instructions: Dizziness, Nonvertigo Discharge ED Provider: Gilles Yeh General Adult HPI General Chief complaint: Dizziness Stated complaint: swollen right jaw, dizzy Time Seen by Provider: 10/11/23 15:54 Mode of Arrival: Ambulatory Source of Information: Patient Limitations: No Limitations Description of Symptoms (Recalled from ER Triage Doc. by RN): Patient reports having a swollen right side of face. States he is on antibiotics for this and was scheduled to have his teeth pulled this morning. Upon arrival to the dentist they told him that they would not see him because he was really dizzy. States it feels like his head is spinning. Denies N/V or headache. History of Present Illness HPI narrative: Please note that above description of symptoms, in this electronic medical record under categorization of recalled from ER triage doctor by RN are reflective of an initial nursing assessment, however, is not reflective of my full history and physical exam that was personally taken and clarified. Consequentially, this preceding description of symptoms, which may include the patient's categorized chief complaint in the EMR, do not reflect my personal clinical impression, and the ultimate description of history of present illness and patient stated complaints should be deferred to this section of the note. Unless stated otherwise or congruent with this section of the note, additional signs, symptoms, or incongruence should be interpreted as inaccurate with my clinical impression. Related Data Home Medications Medication Instructions Recorded Confirmed aspirin 81 mg chewable tablet 81 mg PO DAILY 11/15/22 03/06/23 clopidogrel 75 mg tablet (Plavix) 75 mg PO DAILY 11/15/22 03/06/23 Previous Rx's Medication Instructions Recorded amoxicillin 875 mg-potassium 1 tab PO BID 7 days #14 tabs 10/07/23 clavulanate 125 mg tablet clopidogrel 75 mg tablet 75 mg PO DAILY #30 tabs 10/11/23 Allergies Allergy/AdvReac Type Severity Reaction Status Date / Time morphine Allergy Other Verified 11/15/22 10:56 [facility] Disclaimer: The information contained in this section may have been updated after the patient was seen, as this information can be updated by other users. Medical History Chronic pain Family History Other No significant family history Social History Smoking Status: Never smoker how long ago did patient quit smokin stopped smoking -pt is currently dipping tobacco. second hand exposure: No alcohol intake: never substance use type: denies use current occupational status: other Travel in the last 8 weeks: None household members: family housing: house ROS Obtained: Yes All systems reviewed & no additional complaints except as documented Physical Exam General General appearance: alert and in no apparent distress Head Head exam: atraumatic and normocephalic Eye Eye exam: Present normal appearance, PERRL and EOMI ENT ENT exam: Present mucous membranes moist Neck Neck exam: Present normal inspection, full ROM and trachea midline Respiratory Respiratory exam: Absent respiratory distress, wheezes, stridor, accessory muscle use or prolonged expiratory phase Cardiovascular Cardiovascular exam: Present normal rhythm Abdominal Exam Abdominal exam: Present soft; Absent distention, tenderness, guarding, rebound or rigidity Extremities Exam Extremities exam: Absent edema Neurological Exam Neurological exam: Present alert, oriented X3, CN II-XII intact and normal gait; Absent motor sensory deficit Skin Skin exam: Present warm and dry; Absent diaphoresis or erythema Medical Decision Making Medical Records Medical records reviewed: Yes I reviewed the patient's medical records. James Inquiry Pt receiving controlled substance: No James was queried for this patient: No Vital Signs: 10/11/23 15:51 10/11/23 16:30 10/11/23 17:18 Temperature 98.0 F 98.0 F Temperature Source Oral Oral Pulse Rate 91 H 90 Pulse Rate [Radial] 85 Respiratory Rate 18 18 Blood Pressure 142/89 H 138/72 Blood Pressure [Right Arm] 133/96 H Blood Pressure Mean [Right Arm] 108 Blood Pressure Source Automatic Cuff Blood Pressure Source [Right Arm] Automatic Cuff Blood Pressure Position Sitting Blood Pressure Position [Right Arm] Sitting 02 Sat by Pulse Oximetry 100 99 Oxygen Delivery Method Room Air Room Air Room Air Lab Data Lab Results 10/11/23 16:22: WBC 6.1, RBC 4.75, Hgb 14.9, Hct 43.6, MCV 91.7, MCH 31.4 H, MCHC 34.2, RDW 13.5, Plt Count 339, MPV 8.2, Neut % (Auto) 64.7, Lymph % (Auto) 25.4, [place] % (Auto) 6.4, Eos % (Auto) 2.8, Baso % (Auto) 0.7, Neut # (Auto) 3.9, Lymph # (Auto) 1.5, [place] # (Auto) 0.4, Eos # (Auto) 0.2, Baso # (Auto) 0.0, Sodium 140, Potassium 4.4, Chloride 105, Carbon Dioxide 29, Anion Gap 10.4, BUN 14, Creatinine 0.80, Estimated Creat Clear 107, Estimated GFR 106, Est GFR ( Amer) 128, Glucose 93, Calcium 9.9, Total Bilirubin 0.6, AST 29, ALT 29, Alkaline Phosphatase 100, Troponin I < 0.01, Total Protein 7.4, Albumin 4.1, Globulin 3.3 H, Albumin/Globulin Ratio 1.2 10/11/23 16:22 10/11/23 16:22 Orders (Tests/Meds): ED MEDICATIONS Discontinued Medications Generic Name Dose Route Start Last Admin Trade Name Freq PRN Reason Stop Dose Admin Lidocaine HCl 15 ml 10/11/23 16:08 10/11/23 16:24 Lidocaine 2% Viscous Mary 15ml Udc PO 10/11/23 16:09 15 ml ONCE ONE Administration ORDERS Category Date Time Status CBC w/Auto Diff [Complete Blood Count Auto Diff] Stat Lab 10/11/23 16:22 Completed CMP [Comprehensive Metabolic Panel] Stat Lab 10/11/23 16:22 Completed Trop I [Troponin I] Stat Lab 10/11/23 16:22 Completed Medical Decision Narrative: 43-year-old male history of poor dentition, tachycardia, CVA on Plavix presenting with facial swelling and dizziness. Patient states that he woke up this morning, 5/3. Was dizzy shortly after waking up. This lasted approximately 3 to 5 minutes. Self abated. Not currently feeling dizzy. Went to the dentist to have abscessed tooth removed. At dentist he told me he felt dizzy this morning, dentist sent emergently to the emergency department for further evaluation. History was obtained via conversation with patient and family. On arrival, patient hemodynamically stable, alert, oriented x4, appropriate, GCS 15, moving all extremities spontaneously, pupils equal and reactive to light. Full physical exam performed and significant for cardiac exam within normal limits, pulses equal and symmetric, no lower extremity edema. NIHSS 0, neurologically intact and symmetric. Differential includes anxiety, medication noncompliance, arrhythmia, dehydration, BPPV, among others. Patient was given dental balls and abscess drainage for symptomatic management and correction of underlying abnormalities. Workup independently interpreted and significant for nonactionable CBC, chemistry, troponin. See radiology read for full review of final results. Independent interpretation of EKG shows sinus rhythm [address] or T wave changes concerning for acute STEMI. TN, QRS, QT intervals within normal limits. [place] normal. Heart score 0 On reevaluation, patient feeling much better after abscess drainage. Because patient at baseline without signs or symptoms of clinical decompensation, deemed appropriate for discharge. Results were relayed to patient who voiced understanding and were agreeable to outpatient management and follow up. I discussed my clinical impression with patient and answered all questions. At this time, the evidence for any other entities in the differential is insufficient to warrant any further testing or ED observation. This was explained as well. Advisory was given that persistent or worsening symptoms require further evaluation. I confirmed the understanding of this discussion. Procedures Abscess I/D Site: oral Side (if applicable): right Local Anesthetic: lidocaine 1% (topical) Technique: incised with #11 blade Amount of fluid expressed (mL): 2 Irrigation: Yes Packing used?: none Critical Care Critical Care Time Critical Care Time: No
[2023-10-11 17:18] VITALS: BP 138/72; PULSE 90; RESP 18; TEMP 36.7; O2SAT 99
== END 2023-10-11 17:18 | disposition home or self-care (01) ==
PROVIDERS: Emergency Provider Emergency Medicine
DX: R00.0 Tachycardia, unspecified (principal); K04.7 Periapical abscess without sinus; R42 Dizziness and giddiness; Z86.73 Personal history of transient ischemic attack (TIA), and cerebral infarction without residual deficits; Z79.01 Long term (current) use of anticoagulants
CPT/HCPCS: 10060; 80053; 84484; 85025; 93005; 99284

== ENCOUNTER 2023-12-25 12:25 | Outpatient (CLI) | payer BC, SELFPAY ==
[2023-12-25 18:39] LABS: Basophils # 0.1 K/mm3 (0-0.2); Basophils % 0.8 % (0.1-2.0); Eosinophils # 0.2 K/mm3 (0.0-0.4); Eosinophils % 3.6 % (0.1-12.0); Hemoglobin 15.1 g/dL (14.1-18.0); Lymphocytes # 1.9 K/mm3 (0.7-4.5); Lymphocytes % 29.7 % (10-50); Mean Corpuscular HGB Conc 32.8 g/dL (31.8-35.4); Mean Corpuscular Hemoglobin 31.3 pg (27.0-31.2); Mean Corpuscular Volume 95.3 fl (80-94); Mean Platelet Volume 9.7 fl (7.4-10.4); Monocytes # 0.5 K/mm3 (0.1-1.0); Monocytes % 7.8 % (1.7-9.3); Neutrophils # 3.8 K/mm3 (1.8-7.8); Platelet Count 319 K/mm3 (142-424); Red Blood Count 4.83 M/mm3 (4.60-6.20); Red Cell Distribution Width 13.6 % (11.5-17.5); White Blood Count 6.5 K/mm3 (4.8-10.8)
[2023-12-25 19:21] LABS: Alanine Aminotransferase 23 U/L (12-78); Albumin Level 4.1 g/dl (3.5-5.0); Albumin/Globulin Ratio 1.5 (1.1-1.8); Alkaline Phosphatase 85 U/L (38-126); Anion Gap 11.7 mEq/L (5-15); Aspartate Amino Transferase 27 U/L (17-59); Bilirubin,Total 0.4 mg/dl (0.2-1.3); Blood Urea Nitrogen 9 mg/dl (9-20); Calcium 9.5 mg/dl (8.4-10.2); Carbon Dioxide 29 mmol/L (22.0-30.0); Chloride 104 mmol/L (98-107); Chol/HDL Ratio 3.7 (1-3.5); Cholesterol 172 mg/dl (140-200); Estimated Glomerular Filt Rate 106 ml/min (>60); GFR (African American) 128 ML/MIN (>60); Globulin 2.7 g/dL (1.3-3.2); Glucose 56 mg/dl (74-100); HDL Cholesterol 46 mg/dl (40-60); Potassium 4.7 mmoL/L (3.5-5.1); Sodium 140 mmol/L (136-145); Total Protein,Serum 6.8 g/dl (6.3-8.2); Triglycerides 39 mg/dl (30-150); VLDL Cholesterol 8 mg/dL (0-40)
[2023-12-25 19:32] LABS: Direct LDL Cholesterol 105.57 mg/dL (100-129)
[2023-12-25 19:48] LABS: 25-OH Vitamin D, Total 41.8 ng/mL (30-100)
[2023-12-25 19:53] LABS: Thyroid Stimulating Hormone 0.44 uIU/mL (0.465-4.68)
[2023-12-25 20:34] LABS: Iron 81 ug/dL (49-181)
[2023-12-25 20:43] LABS: Total Iron Binding Capacity 302 ug/dL (261-462)
[2023-12-25 22:24] LABS: Vitamin B12 241 pg/mL (239-931)
[2023-12-25 22:30] LABS: Folate 2.77 ng/mL
[2023-12-26 13:14] LABS: HIV (1&2) Antibody Rapid NON REACTIVE
[2023-12-27 08:49] LABS: HCV Ab Non Reactive (Non Reactive)
== END 2023-12-25 23:59 | disposition home or self-care (01) ==
LOC: LAB.DROPOF 12-26 12:25
PROVIDERS: PCP Nurse Practitioner Family; Visit Provider Nurse Practitioner Family
DX: Z86.73 Personal history of transient ischemic attack (TIA), and cerebral infarction without residual deficits (principal); G93.6 Cerebral edema
CPT/HCPCS: 86803; 86703; 80050; 80053; 80061; 82306; 82607; 82746; 83540; 83550; 84443; 85025